=== PATIENT | female | born 1955 | race Two or more races ===

== ENCOUNTER 2022-01-21 10:42 | Outpatient (CLI) | payer OTHER | END 2022-01-21 10:56 | disposition home or self-care (01) | LOC: RAD 10:42 | PROVIDERS: ATTEND Orthopaedic Surgery | DX: M25.562 Pain in left knee (principal); N39.46 Mixed incontinence; N81.10 Cystocele, unspecified; N64.4 Mastodynia | CPT/HCPCS: 73721; 74455; 77066; A9698 ==